=== PATIENT | female | born 1945 | race Caucasian/White ===

== ENCOUNTER 2016-08-14 19:14 | Emergency (ER) | payer MEDICARE, MEDICAID ==
[~2016-08-14] VITALS: Ht 165.1 cm; Wt 69.0 kg
[~2016-08-14 19:14] MED LIST: ALPR.25 PO; CLAR10TA13 PO; CLON0.3T PO; CORE25TA PO; ENAL20TA81 PO; FOLI1TAB PO; GABA600T PO; HYDR10TA23 PO; LANS30 PO; LANTINJ SC; MAGN500T4 PO; PLAV75TA PO; POTA550T4 PO; PROZ20CA11 PO; SPIR25 PO; TRAZ50TA4 PO; ULTR50TA PO; VITA100020 PO
[2016-08-14 19:20] VITALS: BP 133/68; PULSE 72; RESP 17; TEMP 97.6; O2SAT 97
[2016-08-14 19:26] VITALS: BP 133/68; PULSE 72; RESP 17; TEMP 97.6; O2SAT 97
[2016-08-14 19:30] VITALS: BP_SYST 170; BP_SYST 190; BP_SYST 198; BP_DIAS 70; BP_DIAS 76; RESP 18; RESP 19
[2016-08-14] MEDS ORDERED: ONDANSETRON HCL 4 MG/2 ML VIAL IVP ONE (19:30)
[2016-08-14] MEDS ORDERED: MECLIZINE HCL 25 MG TAB PO ONE (19:30)
[2016-08-14] MEDS ORDERED: SODIUM CHLORIDE 0.9% FLUSH 5 ML FLUSH IVF PRN (19:30)
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
--- NOTE | 2016-08-14 20:00 | RADRPT ---
EXAM DATE/TIME: 08/14/2016 19:43 [facility] COMPARISON: No previous studies available for comparison. INDICATIONS : Dizziness and confusion with abnormal heart rate. MEDICAL HISTORY : None. SURGICAL HISTORY : Stent. ENCOUNTER: Initial ACUITY: 1 day PAIN SCORE: 0/10 LOCATION: Bilateral chest FINDINGS: A single view of the chest demonstrates the lungs to be symmetrically aerated without evidence of mas s, infiltrate or effusion. The cardiomediastinal contours are unremarkable. Osseous structures are intact. CONCLUSION: No acute disease. Pal Mccartney MD on August 14, 2016 at 19:58 Board Certified Radiologist. This report was verified electronically.
[2016-08-14 20:08] LABS: AUTOMATED NEUTROPHIL # 15.7 TH/MM3 (1.8-7.7); BASOPHIL % 0.2 % (0.0-2.0); EOSINOPHIL # 0.1 TH/MM3 (0-0.4); EOSINOPHIL % 0.8 % (0.0-4.0); HEMO FLAGS DIFF FINAL; LYMPH % 6.6 % (9.0-44.0); LYMPHOCYTE # 1.2 TH/MM3 (1.0-4.8); MEAN CORPUSCULAR HEMOGLOBIN 28.4 PG (27.0-34.0); MEAN CORPUSCULAR HGB CONC 33.1 % (32.0-36.0); MONO % 6.4 % (0.0-8.0); PLATELET COUNT 261 TH/MM3 (150-450); RED BLOOD COUNT 3.84 MIL/MM3 (4.00-5.30); RED CELL DISTRIBUTION WIDTH 13.8 % (11.6-17.2); WHITE BLOOD COUNT 18.3 TH/MM3 (4.0-11.0)
--- NOTE | 2016-08-14 20:08 | RADRPT ---
EXAM DATE/TIME: 08/14/2016 19:58 [facility] COMPARISON: No previous studies available for comparison. INDICATIONS : Dizziness and general weakness. RADIATION DOSE: 37.02 CTDIvol (mGy) MEDICAL HISTORY : Stroke. Seizures. Hypertension. Kidney and breast cancer. SURGICAL HISTORY : None. ENCOUNTER: Initial ACUITY: 1 day PAIN SCALE: 3/10 LOCATION: cranial TECHNIQUE: Multiple contiguous axial images were obtained of the head. Using automated exposure control and adj ustment of the mA and/or kV according to patient size, radiation dose was kept as low as reasonably a chievable to obtain optimal diagnostic quality images. FINDINGS: CEREBRUM: First mild to moderate atrophic change. Focal encephalomalacia involving the white matter of the left parietal lobe. No evidence of midline shift, mass lesion, hemorrhage or acute infarction. No extra- axial fluid collections are seen. POSTERIOR FOSSA: The cerebellum and brainstem are intact. The 4th ventricle is midline. The cerebellopontine angle i s unremarkable. EXTRACRANIAL: The visualized portion of the orbits is intact. There is a small air-fluid level in left sphenoid sin us. SKULL: The calvaria is intact. No evidence of skull fracture. CONCLUSION: 1. There is encephalomalacia involving the left parietal lobe most characteristic of an area of remot e infarction. 2. No acute hemorrhage or mass effect. 3. Small air-fluid level within the left sphenoid sinus. Pal Mccartney MD on August 14, 2016 at 20:05 Board Certified Radiologist. This report was verified electronically.
[2016-08-14 20:34] LABS: BLOOD, URINE NEG (NEG); COMMENT (UR) CULT NOT INDICATED; CULTURE IF INDICATED CULT NOT INDICATED; GLUCOSE,URINE NEG (NEG); KETONE, URINE NEG (NEG); NITRITE,URINE NEG (NEG); URINE COLOR COLORLESS (YELLW/STRAW)
[2016-08-14 20:36] LABS: ANION GAP 9 MEQ/L (5-15); BICARBONATE 27.5 MEQ/L (21.0-32.0); BLOOD UREA NITROGEN 12 MG/DL (7-18); CHLORIDE 99 MEQ/L (98-107); GLOMERULAR FILTRATION RATE 62 ML/MIN (>89); POTASSIUM 3.6 MEQ/L (3.5-5.1); SODIUM (NA) 135 MEQ/L (136-145)
[2016-08-14 20:40] LABS: CREATINE KINASE 153 U/L (26-192)
[2016-08-14] MEDS ORDERED: ENALAPRIL MALEATE 10 MG TAB PO ONE (20:45)
[2016-08-14] MEDS ORDERED: hydrALAZINE HCL 10 MG TAB PO ONE (20:45)
[2016-08-14] MEDS ORDERED: cloNIDine HCL 0.1 MG TAB PO ONE (20:45)
[2016-08-14] MEDS ORDERED: CARVEDILOL 12.5 MG TAB PO ONE (20:45)
[2016-08-14 20:52] LABS: CKMB 1.5 NG/ML (0.5-3.6)
[2016-08-14 20:55] VITALS: BP 205/119; PULSE 65; RESP 22; O2SAT 98
--- NOTE | 2016-08-14 21:48 | EKG ---
Date Performed: 08/14/2016 Time Performed: 19:22:55 PTAGE: 70 years EKG: Sinus rhythm MODERATE ST DEPRESSION PROLONGED QT INTERVAL ABNORMAL ECG WARNING: DATA QUALITY MAY AFFECT INTERPRET ATION INTERPRETATION BASED ON A DEFAULT AGE OF 40 YEARS NO SIGNIFICANT CHANGE FROM PRIOR ELECTROCARDI OGRAM. PREVIOUS TRACING : 09/21/2013 10.40 DOCTOR: Cristobal Vargas Interpretating Date/Time 08/14/2016 21:47:40
[2016-08-14 22:12] VITALS: BP 180/77; PULSE 74; RESP 22; O2SAT 100
[2016-08-14] MEDS ORDERED: LEVOTAB PO (22:40)
[2016-08-14] MEDS ORDERED: ENAL20TA PO (22:40)
[2016-08-14] MEDS ORDERED: GABA600T PO (22:40)
[2016-08-14] MEDS ORDERED: FLUT50SP EACH NARE (22:40)
[2016-08-14] MEDS ORDERED: CARV25TA PO (22:40)
[2016-08-14] MEDS ORDERED: HUMALOG SQ (22:40)
[2016-08-14] MEDS ORDERED: LANTINJ SQ (22:40)
[2016-08-14] MEDS ORDERED: VITA100T15 PO (22:40)
[2016-08-14] MEDS ORDERED: ALPR0.25 PO (22:40)
[2016-08-14] MEDS ORDERED: HYDR50TA15 PO (22:40)
[2016-08-14] MEDS ORDERED: TRAZ50TA12 PO (22:40)
[2016-08-14] MEDS ORDERED: ZOFR4TAB PO (22:40)
[2016-08-14] MEDS ORDERED: DOCU100C PO (22:40)
[2016-08-14] MEDS ORDERED: LOPE2CAP PO (22:40)
[2016-08-14] MEDS ORDERED: CLON0.3T PO (22:40)
[2016-08-14] MEDS ORDERED: ACET325T PO (22:40)
[2016-08-14] MEDS ORDERED: FLUO40CA PO (22:40)
[2016-08-14] MEDS ORDERED: LETR2.5T PO (22:40)
[2016-08-14] MEDS ORDERED: CLOP75TA PO (22:40)
[2016-08-14] MEDS ORDERED: FOLI1TAB4 PO (22:40)
[2016-08-14] MEDS ORDERED: ATOR10TA15 PO (22:40)
[2016-08-14] MEDS ORDERED: ACETAMINOPHEN 325 MG TAB PO ONE (23:15)
[2016-08-14 23:17] VITALS: BP 152/68; PULSE 72; RESP 16; O2SAT 97
== END 2016-08-14 23:41 | disposition home or self-care (01) ==
LOC: NEPC 19:14
DX: R42 Dizziness and giddiness (principal); I10 Essential (primary) hypertension; R94.31 Abnormal electrocardiogram [ECG] [EKG]; R47.01 Aphasia; D64.9 Anemia, unspecified; J45.909 Unspecified asthma, uncomplicated; E11.9 Type 2 diabetes mellitus without complications; G47.00 Insomnia, unspecified
CPT/HCPCS: 70450; 71010; 80048; 81001; 82550; 82552; 84484; 85025; 93005; 96374; 99285; J2405